=== PATIENT | female | born 1965 | race Caucasian/White ===

== ENCOUNTER 2016-09-27 14:57 | Emergency (ER) | payer OTHER ==
[~2016-09-27] VITALS: Ht 162.6 cm; Wt 69.9 kg
[~2016-09-27 14:57] MED LIST: ACID1TAB14 PO; ADAL40PE2 SQ; ADALIMUMAB SQ; DEXL60CA2 PO; DOXY100C14 PO; DULO30CA2 PO; DULO60CA6 PO; FENT1PAT17 TP; Fentanyl TD; HYDR-2766 PO; LEVO500T59 PO; MESA250C PO; MESA500C PO; NEOM1OIN6 TP; ONDA4TAB12 PO
[2016-09-27 15:10] VITALS: BP 122/91
--- NOTE | 2016-09-27 15:31 | PHYS DOC ---
Past Medical History Past Medical History: Arthritis, Fibromyalgia, Other Additional Past Medical Histor: Crohn's disease, SKIN DISORDERS, genital warts Past Surgical History: Appendectomy, , Tonsillectomy, Tubal ligation Additional Past Surgical Histo: ILEOSTOMY REPAIR, COLON RESECTION Alcohol Use: Occasionally Drug Use: None Adult General Chief Complaint Chief Complaint: KNEE SWELLING HPI HPI Patient is a 51 year old female with a history of fibromyalgia, arthritis, who presents with moderate right knee pain and swelling that began 3 days ago. Patient denies any injuries. She states she would like her knee drained. She states she is currently on fentanyl and takes 10/325 mg of hydrocodone every 6 hours. Patient states she's had to double her pain medicine in the last couple days. Patient denies any injury. Review of Systems Review of Systems Constitutional: Denies fever or chills [] Eyes: Denies change in visual acuity, redness, or eye pain [] HENT: Denies nasal congestion or sore throat [] Musculoskeletal: moderate right knee pain and swelling Integument: Denies rash or skin lesions [] Neurologic: Denies headache, focal weakness or sensory changes [] Endocrine: Denies polyuria or polydipsia [] Allergies Allergies Allergies Coded Allergies Type Severity Reaction Last Updated Verified Sulfa (Sulfonamide Antibiotics) Allergy Intermediate 10/14/14 Yes aspirin Allergy Intermediate 10/14/14 Yes erythromycin base Allergy Intermediate 10/14/14 Yes ibuprofen Allergy Intermediate 10/14/14 Yes vancomycin Allergy Intermediate 10/14/14 Yes I S O L A T I O N *CONTACT* Allergy Unknown 11/17/15 Yes Physical Exam Physical Exam Constitutional: Well developed, well nourished, no acute distress, non-toxic appearance. [] HENT: Normocephalic, atraumatic, bilateral external ears normal, oropharynx moist, no oral exudates, nose normal. [] Skin: Warm, dry, no erythema, no rash. [] Back: No tenderness, no CVA tenderness. [] Extremities: Right knee with mild soft tissue swelling diffusely. Tenderness diffusely on palpation of the right knee. Full range of motion to the right knee including negative Gill sign and negative Evelyn's sign negative anterior-posterior drawer sign to the right knee. +2 right pedal pulse. Cap refill less than 2 seconds the right lower extremity. Sensation intact to the right lower extremity. Neurologic: Alert and oriented X 3, normal motor function, normal sensory function, no focal deficits noted. [] Psychologic: Affect normal, judgement normal, mood normal. [] Current Patient Data Vital Signs Vital Signs Date Time Temp Pulse Resp B/P (MAP) Pulse Ox O2 Delivery O2 Flow Rate FiO2 09/27/16 15:10 98.0 85 18 96 Room Air 98.0 EKG EKG [] Radiology/Procedures Radiology/Procedures [] Course & Med Decision Making Course & Med Decision Making Pertinent Labs and Imaging studies reviewed. (See chart for details) Patient is in the ED with complaints of right knee pain and swelling. She is requesting we drain the right knee. Right knee has no signs of infection. Informed patient we typically don't drain any joints in the ED unless there is good indication for it we recommend orthopedic doctor f/u, she states she has an orthopedic doctor but she does not remember the name. Recommended x-rays of the knee. Patient states the x-rays are not beneficial for her. She states all she wanted is the knee to be drained, she was also requesting pain medicine. She states she has a fentanyl patch on and takes 10/325 mg of hydrocodone. She states she has had to double up her pain medicines right now she is on her last tablets. Informed patient we will not give her any prescription strength narcotics from the emergency room. Recommended x-ray again. She declined. She states she has a knee brace and wanted to be discharged. She states she'll follow-up with her own primary care doctor next week. Patient was discharged in stable condition. Dragon Disclaimer Dragon Disclaimer This electronic medical record was generated, in whole or in part, using a voice recognition dictation system. Departure Departure Impression: Primary Impression: Right knee pain Disposition: 01 HOME, SELF-CARE Condition: STABLE Referrals: WESTLEY GRUBBS MD (PCP) TARA YBARRA MD follow up with your orthopedic doctor as soon as you can or your primary care doctor Patient Instructions: Knee Pain, [id number] Additional Instructions: You were seen for right knee pain and swelling. We recommended x-rays of the right knee which you declined. Please follow-up with your own primary care doctor as well as orthopedic doctor as soon as possible. Wear the knee brace as tolerated. Ice and elevate the extremity. 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
== END 2016-09-27 15:33 | disposition home or self-care (01) ==
LOC: ER 14:57
DX: M25.561 Pain in right knee (principal); M79.89 Other specified soft tissue disorders; M79.7 Fibromyalgia; K50.90 Crohn's disease, unspecified, without complications; M19.90 Unspecified osteoarthritis, unspecified site; Z90.49 Acquired absence of other specified parts of digestive tract; Z98.51 Tubal ligation status; Z88.2 Allergy status to sulfonamides; Z88.6 Allergy status to analgesic agent; Z88.1 Allergy status to other antibiotic agents; Z91.041 Radiographic dye allergy status
CPT/HCPCS: 99281; 99284

== ENCOUNTER 2017-01-13 18:02 | Emergency (ER) | payer OTHER ==
[~2017-01-13] VITALS: Ht 162.6 cm; Wt 69.9 kg
[2017-01-13 19:02] VITALS: BP 153/92
[2017-01-13] MEDS ORDERED: LIDOCAINE 2% 20 ML VIAL. IJ ONE (19:15)
--- NOTE | 2017-01-13 19:51 | PHYS DOC ---
Past Medical History Past Medical History: Arthritis, Fibromyalgia, Other Additional Past Medical Histor: Crohn's disease, SKIN DISORDERS, genital warts , RA Past Surgical History: Appendectomy, , Tonsillectomy, Tubal ligation Additional Past Surgical Histo: ILEOSTOMY REPAIR, COLON RESECTION Additional Information: pt "vapes" Alcohol Use: Occasionally Drug Use: None Adult General Chief Complaint Chief Complaint: INSECT BITE HPI HPI Patient is a 51 year old female with a history of Crohn's disease presents the ED complaining of abscess to right elbow and right abdomen 1 week. Patient states she started pushing on them 2 days ago and got a moderate amount of pus out. Describes the pain as sharp. Rates the pain as 9 out of 10. Denies fever, nausea/vomiting, abdominal pain, dizziness, weakness, shortness of breath or chest pain. Review of Systems Review of Systems Constitutional: Denies fever or chills [] Eyes: Denies change in visual acuity, redness, or eye pain [] HENT: Denies nasal congestion or sore throat [] Respiratory: Denies cough or shortness of breath [] Cardiovascular: No additional information not addressed in HPI [] GI: Denies abdominal pain, nausea, vomiting, bloody stools or diarrhea [] : Denies dysuria or hematuria [] Musculoskeletal: Denies back pain or joint pain [] Integument: Complains of abscess. Denies rash or skin lesions [] Neurologic: Denies headache, focal weakness or sensory changes [] Endocrine: Denies polyuria or polydipsia [] Current Medications Current Medications Current Medications Medications (Trade) Dose Ordered Sig/Juan Start Time Stop Time Status Last Admin Dose Admin Lidocaine HCl 20 ml 1X ONCE 01/13/17 19:15 01/13/17 19:16 DC 01/13/17 19:40 20 ML Allergies Allergies Allergies Coded Allergies Type Severity Reaction Last Updated Verified Sulfa (Sulfonamide Antibiotics) Allergy Intermediate 10/14/14 Yes aspirin Allergy Intermediate 10/14/14 Yes erythromycin base Allergy Intermediate 10/14/14 Yes ibuprofen Allergy Intermediate 10/14/14 Yes vancomycin Allergy Intermediate 10/14/14 Yes I S O L A T I O N *CONTACT* Allergy Unknown 11/17/15 Yes Physical Exam Physical Exam Constitutional: Well developed, well nourished, no acute distress, non-toxic appearance. [] HENT: Normocephalic, atraumatic, bilateral external ears normal, oropharynx moist, no oral exudates, nose normal. [] Eyes: PERRLA, EOMI, conjunctiva normal, no discharge. [] Neck: Normal range of motion, no tenderness, supple, no stridor. [] Cardiovascular:Heart rate regular rhythm, no murmur [] Lungs & Thorax: Bilateral breath sounds clear to auscultation [] Abdomen: Bowel sounds normal, soft, no tenderness, no masses, no pulsatile masses. [] Skin: Warm, dry, no rash. 2X2 CM ABSCESS TO RIGHT ELBOW, 3X1 CM ABSCESS TO RIGHT ABDOMEN. [] Back: No tenderness, no CVA tenderness. [] Extremities: No tenderness, no cyanosis, no clubbing, ROM intact, no edema. [] Neurologic: Alert and oriented X 3, normal motor function, normal sensory function, no focal deficits noted. [] Psychologic: Affect normal, judgement normal, mood normal. [] Current Patient Data Vital Signs Vital Signs Date Time Temp Pulse Resp B/P (MAP) Pulse Ox O2 Delivery O2 Flow Rate FiO2 01/13/17 19:02 97.5 100 20 98 Room Air 97.5 EKG EKG [] Radiology/Procedures Radiology/Procedures [] Course & Med Decision Making Course & Med Decision Making Pertinent Labs and Imaging studies reviewed. (See chart for details) []States tetanus is up-to-date. Incision and drainage completed. No complications. Discussed symptomatic treatment. Prescribe doxycycline and Keflex outpatient. Discussed follow-up for wound reevaluation in 3 days. Provided contact information/education. Discussed reasons to return to the ED sooner. Patient understands and agrees with plan. Family at bedside. Dragon Disclaimer Dragon Disclaimer This electronic medical record was generated, in whole or in part, using a voice recognition dictation system. Departure Departure Impression: Primary Impression: Abscess Disposition: 01 HOME, SELF-CARE Condition: STABLE Referrals: Fide GRUBBS MD (PCP) Patient Instructions: Abscess Scripts Cephalexin (KEFLEX) 500 Mg Capsule 1 CAP PO TID, #30 CAP Prov: KELSI GOEL 01/13/17 Doxycycline Hyclate (DOXYCYCLINE HYCLATE) 100 Mg Capsule 1 CAP PO BID, #20 CAP Prov: KELSI GOEL 01/13/17 Incision and Drainage Incision and Drainage : Site: RIGHT ELBOW Blade Size: 11 I & D Procedure: betadine prep Progress incision and drainage completed. No complications. Incision and Drainage Incision and Drainage : Site: right abdomen Blade Size: 11 I & D Procedure: betadine prep Progress Incision and drainage completed. No complications. KELSI GOEL Jan 13, 2017 19:51
[2017-01-13] MEDS ORDERED: CEPH-264 PO (19:56)
[2017-01-13] MEDS ORDERED: DOXY100C2 PO (19:56)
[2017-01-15] MEDS ORDERED: ESOM40CA47 PO (14:54)
[2017-01-15] MEDS ORDERED: DICL100G18 TOP (14:54)
[2017-01-18] MEDS ORDERED: POTA20TA4 PO (14:01)
[2017-01-18] MEDS ORDERED: CLIN300C8 PO (14:01)
[2017-01-18] MEDS ORDERED: FENT1PAT17 TP (14:01)
== END 2017-01-13 20:06 | disposition home or self-care (01) ==
LOC: ER 18:02
DX: L02.211 Cutaneous abscess of abdominal wall (principal); L02.413 Cutaneous abscess of right upper limb; M79.7 Fibromyalgia; K50.90 Crohn's disease, unspecified, without complications; Z90.49 Acquired absence of other specified parts of digestive tract; Z98.51 Tubal ligation status; Z98.890 Other specified postprocedural states; Z93.2 Ileostomy status; Z88.2 Allergy status to sulfonamides; Z88.1 Allergy status to other antibiotic agents; Z88.6 Allergy status to analgesic agent; Z91.041 Radiographic dye allergy status; M06.9 Rheumatoid arthritis, unspecified
CPT/HCPCS: 10061; 99284-25; J2001

== ENCOUNTER → 2017-11-07 | Outpatient (CLI) | payer OTHER ==
[~2017-11-07] MED LIST changes: -ACID1TAB14 PO; -ADAL40PE2 SQ; -ADALIMUMAB SQ; +CONTRAST GIVEN. MC; -DEXL60CA2 PO; -DOXY100C14 PO; -DULO30CA2 PO; -DULO60CA6 PO; -FENT1PAT17 TP; -Fentanyl TD; -HYDR-2766 PO; -LEVO500T59 PO; -MESA250C PO; -MESA500C PO; -NEOM1OIN6 TP; -ONDA4TAB12 PO
[2017-11-07] MEDS: IOHEXOL 240 MG/ML 50ML VIAL. PO (09:15)
[2017-11-07] MEDS: IOHEXOL 300 MG/ML 100ML VIAL. IV (09:15)
== END | disposition home or self-care (01) ==
LOC: CT 08:33
DX: K50.00 Crohn's disease of small intestine without complications (principal); N32.89 Other specified disorders of bladder; F32.9 Major depressive disorder, single episode, unspecified; K21.9 Gastro-esophageal reflux disease without esophagitis; J44.9 Chronic obstructive pulmonary disease, unspecified; E87.6 Hypokalemia; Z87.891 Personal history of nicotine dependence; Z91.81 History of falling; Z90.49 Acquired absence of other specified parts of digestive tract; Z91.041 Radiographic dye allergy status; Z82.3 Family history of stroke
CPT/HCPCS: 74177; Q9966; Q9967

== ENCOUNTER → 2017-11-18 | Day surgery (SDC) | payer OTHER, MEDICAID ==
[~2017-11-18] MED LIST changes: +ACID1TAB14 PO; +ADAL40PE2 SQ; +ADALIMUMAB SQ; +BETA15OI TP; +CEPH-264 PO; +CLIN300C8 PO; -CONTRAST GIVEN. MC; +DEXL60CA2 PO; +DICL100G18 TOP; +DOXY100C14 PO; +DOXY100C2 PO; +DULO30CA2 PO; +DULO60CA6 PO; +ESOM40CA47 PO; +FENT1PAT17 TP; +Fentanyl TD; +HYDR-2766 PO; +HYDROmorphone 2 MG/ML VIAL IV PRN; +IV RINGERS,LACTATED 1000ML 1,000 ML IV SCH; +LEVO500T59 PO; +LIDOCAINE 1% PF 2 ML VIAL. ID PRN; +LIDOCAINE 2% PF Vial for OR 5 ML VIAL. ONE; +LISI-334 PO; +MESA250C PO; +MESA500C PO; +MORPHINE SULFATE 2 MG/ML VIAL. IV PRN; +NEOM1OIN6 TP; +ONDA4TAB12 PO; +ONDANSETRON PF 4 MG/2 ML VIAL. IV PRN; +POTA20TA4 PO; +PROCHLORPERAZINE 10 MG/2 ML VIAL. IV PRN; +PROPOFOL 40 ML IV ONE; +fentaNYL PF VIAL 100 MCG/2 ML VIAL IV PRN
[2017-11-18 09:45] VITALS: BP 116/63
== END ==
LOC: SURG 08:31
PROVIDERS: ATTEND Internal Medicine Gastroenterology
DX: K56.699 Other intestinal obstruction unspecified as to partial versus complete obstruction (principal); K50.00 Crohn's disease of small intestine without complications; I10 Essential (primary) hypertension; F32.9 Major depressive disorder, single episode, unspecified; F41.9 Anxiety disorder, unspecified; K21.9 Gastro-esophageal reflux disease without esophagitis; E87.6 Hypokalemia; J44.9 Chronic obstructive pulmonary disease, unspecified; Z90.49 Acquired absence of other specified parts of digestive tract; Z98.51 Tubal ligation status; Z87.39 Personal history of other diseases of the musculoskeletal system and connective tissue; Z98.890 Other specified postprocedural states; Z87.891 Personal history of nicotine dependence; Z86.14 Personal history of Methicillin resistant Staphylococcus aureus infection
CPT/HCPCS: 45378; J2001; J2704

== ENCOUNTER → 2017-12-04 | Outpatient (CLI) | payer OTHER, MEDICAID ==
[2017-11-18 09:45] VITALS: BP 116/63
[~2017-12-04] MED LIST changes: +BARIUM SULFATE 340 GM SUSPENSION. PO ONE; +BARIUM SULFATE 60% 355 ML SUSP PO ONE; -HYDROmorphone 2 MG/ML VIAL IV PRN; -IV RINGERS,LACTATED 1000ML 1,000 ML IV SCH; -LIDOCAINE 1% PF 2 ML VIAL. ID PRN; -LIDOCAINE 2% PF Vial for OR 5 ML VIAL. ONE; -MORPHINE SULFATE 2 MG/ML VIAL. IV PRN; -ONDANSETRON PF 4 MG/2 ML VIAL. IV PRN; -PROCHLORPERAZINE 10 MG/2 ML VIAL. IV PRN; -PROPOFOL 40 ML IV ONE; +SIMETHICONE/SOD BICARB/CITRIC ACID PACKET. PO ONE; -fentaNYL PF VIAL 100 MCG/2 ML VIAL IV PRN
--- NOTE | 2017-12-04 11:00 | RAD ---
Double contrast upper GI with small bowel follow-through, 12/04/2017: History: Abdominal pain and bloating, Crohn's disease The study was performed utilizing high density barium and gas-forming crystals followed by regular liquid barium. 3.3 minutes of fluoroscopy time was utilized. 21 fluoroscopic spot images were recorded. The swallowing mechanism is intact. The esophageal peristalsis is normal. No hiatal hernia or gastroesophageal reflux was demonstrated. The stomach and duodenal bulb show no evidence of ulceration or mass. There is a 3.5 cm diverticulum arising from the third portion of the duodenum. The small bowel loops are of normal caliber with no evidence of thickening of their folds. There has been previous surgery involving the distal ileum. It connects to the ascending colon well above the level of the cecum. This presumably represents a surgical anastomosis. No inflammatory changes or significant stricture involving the terminal ileum is identified. IMPRESSION: 1. No significant upper GI abnormality is detected. 2. Moderate sized duodenal diverticulum. 3. Unusual high anastomosis of the terminal ileum with the ascending colon. 4. No evidence of small bowel obstruction.
== END | disposition home or self-care (01) ==
LOC: RAD 14:23
PROVIDERS: ATTEND Internal Medicine Gastroenterology
DX: K57.10 Diverticulosis of small intestine without perforation or abscess without bleeding (principal); J44.9 Chronic obstructive pulmonary disease, unspecified; K21.9 Gastro-esophageal reflux disease without esophagitis; Z87.891 Personal history of nicotine dependence; Z86.14 Personal history of Methicillin resistant Staphylococcus aureus infection; Z87.39 Personal history of other diseases of the musculoskeletal system and connective tissue; Z90.49 Acquired absence of other specified parts of digestive tract; Z88.2 Allergy status to sulfonamides; Z88.1 Allergy status to other antibiotic agents; Z88.8 Allergy status to other drugs, medicaments and biological substances; Z88.6 Allergy status to analgesic agent; Z82.49 Family history of ischemic heart disease and other diseases of the circulatory system; Z82.3 Family history of stroke
CPT/HCPCS: 74249

== ENCOUNTER → 2018-11-04 | Outpatient (CLI) | payer OTHER, MEDICAID ==
[2017-11-18 09:45] VITALS: BP 116/63
[~2018-11-04] MED LIST changes: -BARIUM SULFATE 340 GM SUSPENSION. PO ONE; -BARIUM SULFATE 60% 355 ML SUSP PO ONE; -HYDR-2766 PO; +HYDR-2769 PO; -SIMETHICONE/SOD BICARB/CITRIC ACID PACKET. PO ONE
--- NOTE | 2018-11-05 10:24 | RAD ---
DATE: 11/05/2018 EXAM: MAMMO LENO SCREENING BILATERAL HISTORY: Routine screening COMPARISON: None. Attempts to obtain prior exams for comparison were unsuccessful. This study was interpreted with the benefit of Computerized Aided Detection (CAD). Breast Density: SCATTERED The breast parenchyma shows scattered fibroglandular densities. Breast parenchyma level B. FINDINGS: No dominant masses, distortion, or suspicious calcifications. IMPRESSION: No suspicious finding. BI-RADS CATEGORY: 1 NEGATIVE RECOMMENDED FOLLOW-UP: 12M 12 MONTH FOLLOW-UP PQRS compliance statement: Patient information was entered into a reminder system with a target due date in one year for the next mammogram. Mammography is a sensitive method for finding small breast cancers, but it does not detect them all and is not a substitute for careful clinical examination. A negative mammogram does not negate a clinically suspicious finding and should not result in delay in biopsying a clinically suspicious abnormality. "Our facility is accredited by the [employer] Mammography Program."
== END | disposition home or self-care (01) ==
LOC: MAMMO 14:47
PROVIDERS: ATTEND Family Medicine
DX: Z12.31 Encounter for screening mammogram for malignant neoplasm of breast (principal)
CPT/HCPCS: 77063; 77067

== ENCOUNTER → 2018-12-28 | Outpatient (CLI) | payer OTHER, MEDICAID ==
[2017-11-18 09:45] VITALS: BP 116/63
--- NOTE | 2018-12-28 15:44 | KCIC ---
EXAM: Chest, 2 views. HISTORY: Bronchitis. COMPARISON: None. FINDINGS: 2 views of the chest are obtained. There is no infiltrate, pleural effusion or pneumothorax. The heart is normal in size. There is linear atelectasis or scarring within the left lower lobe. IMPRESSION: No acute pulmonary finding. Electronically signed by: Thais oSusa MD (12/28/2018 3:42 PM) [place] [id number]
== END | disposition home or self-care (01) ==
LOC: KCIC 14:40
PROVIDERS: ATTEND Family Medicine
DX: J20.9 Acute bronchitis, unspecified (principal); J98.11 Atelectasis
CPT/HCPCS: 71046

== ENCOUNTER → 2019-11-18 | Outpatient (CLI) | payer MEDICARE, MEDICAID ==
[2017-11-18 09:45] VITALS: BP 116/63
[~2019-11-18] MED LIST changes: +CONTRAST GIVEN. MC PRN; -DICL100G18 TOP; +DICL100G54 TOP; +IOHEXOL 240 MG/ML 50ML VIAL. PO ONE; +IOHEXOL 300 MG/ML 100ML VIAL. IV ONE
[2019-11-18 13:18] LABS: BASO % 0 % (0-3); EOS # 0.1 x10^3/uL (0.0-0.7); EOS % 2 % (0-3); HEMATOCRIT 41.4 % (36.0-47.0); LYMPH # 0.9 x10^3/uL (1.0-4.8); LYMPH % 18 % (24-48); MEAN CORPUSCULAR HEMOGLOBIN 30 pg (25-35); MEAN CORPUSCULAR HGB CONC 34 g/dL (31-37); MEAN CORPUSCULAR VOLUME 89 fL (79-100); MONO # 0.4 x10^3/uL (0.0-1.1); MONO % 9 % (0-9); NEUT # 3.4 x10^3/uL (1.8-7.7); NEUT % 71 % (31-73); PLATELET COUNT 235 x10^3/uL (140-400); RED BLOOD COUNT 4.63 x10^6/uL (3.50-5.40); RED CELL DISTRIBUTION WIDTH 13.7 % (11.5-14.5); WHITE BLOOD COUNT 4.8 x10^3/uL (4.0-11.0)
[2019-11-18 13:38] LABS: ALBUMIN 3.8 g/dL (3.4-5.0); ALBUMIN/GLOBULIN RATIO 0.7 (1.0-1.7); CALCIUM 9.9 mg/dL (8.5-10.1); CREATININE 0.8 mg/dL (0.6-1.0); POTASSIUM 4.7 mmol/L (3.5-5.1); TOTAL BILIRUBIN 0.5 mg/dL (0.2-1.0); TOTAL PROTEIN 9.2 g/dL (6.4-8.2)
--- NOTE | 2019-11-18 17:01 | RAD ---
EXAM: Abdomen and pelvis CT with intravenous contrast. HISTORY: Right upper quadrant pain. TECHNIQUE: Computed tomographic images of the abdomen and pelvis were obtained following the administration of intravenous contrast. Multiplanar reformatting was performed. *One or more of the following individualized dose reduction techniques were utilized for this examination: 1. Automated exposure control. 2. Adjustment of the mA and/or kV according to patient size. 3. Use of iterative reconstruction technique. COMPARISON: 01/05/2018. FINDINGS: Evaluation of the lower thorax demonstrates no infiltrate, pleural effusion or pneumothorax. There is a 3 mm nodule within the right middle lobe. There is no suspicious hepatic lesion. The gallbladder, pancreas, spleen, adrenal glands and kidneys are unremarkable. The appendix is surgically absent. There is no evidence of bowel obstruction. The bladder is empty. The uterus and adnexal regions are unremarkable. There is diastasis of the ventral abdominal wall with protrusion of fat and loops of bowel. No significant superimposed hernia is seen. There is no lymphadenopathy. There is no suspicious osseous lesion. IMPRESSION: 1. No acute abdominal or pelvic finding. 2. Diastasis of the ventral abdominal wall. 3. Stable 3 mm right middle lobe pulmonary nodule. The two-year course of stability favors benignity. Electronically signed by: Thais Sousa MD (11/18/2019 4:58 PM) [facility]
== END | disposition home or self-care (01) ==
LOC: CT 12:17
PROVIDERS: ATTEND Internal Medicine Gastroenterology
DX: K50.90 Crohn's disease, unspecified, without complications (principal); R91.1 Solitary pulmonary nodule; M62.08 Separation of muscle (nontraumatic), other site; Z90.49 Acquired absence of other specified parts of digestive tract
CPT/HCPCS: 36415; 74177; 80053; 82150; 82306; 82607; 83690; 85025; Q9966; Q9967

== ENCOUNTER 2020-12-10 05:39 | Emergency (ER) | payer MEDICARE, MEDICAID ==
[~2020-12-10] VITALS: Ht 162.6 cm; Wt 85.8 kg
[~2020-12-10 05:39] MED LIST changes: -CLIN300C8 PO; +CLIN300C9 PO; -CONTRAST GIVEN. MC PRN; +DOXY-181 PO; -DOXY100C14 PO; -DOXY100C2 PO; +DOXY100C3 PO; -IOHEXOL 240 MG/ML 50ML VIAL. PO ONE; -IOHEXOL 300 MG/ML 100ML VIAL. IV ONE; -LISI-334 PO; +LISI20TA18 PO; +POTA-121 PO; -POTA20TA4 PO
[2020-12-10] MEDS ORDERED: MORPHINE SULFATE 4 MG/ML INJ. IVP ONE (07:00)
[2020-12-10] MEDS ORDERED: ONDANSETRON PF 4 MG/2 ML VIAL. IVP ONE (07:00)
[2020-12-10] MEDS ORDERED: IV NORMAL SALINE 1000ML BAG 1,000 ML IV ONE (07:00)
--- NOTE | 2020-12-10 07:11 | PHYS DOC ---
Past Medical History Past Medical History: Arthritis, Fibromyalgia, Other Additional Past Medical Histor: Crohn's disease, SKIN DISORDERS, genital warts, RA,HYPOKALEMIA Past Surgical History: Appendectomy, , Tonsillectomy, Tubal ligation Additional Past Surgical Histo: ILEOSTOMY REPAIR, COLON RESECTION Smoking Status: Current Every Day Smoker Alcohol Use: Rarely Drug Use: None General Adult EDM: Chief Complaint: ABDOMINAL PAIN HPI: HPI: Patient is a 55 year old female with history of rheumatoid arthritis, Crohn's disease who presents with "Crohn's flare." States that she has had 2-3 days of intensifying abdominal pain. Most intense in the right lower quadrant, but does hurt diffusely. It is been constant. Also associated with nausea and vomiting, poor appetite. She endorses oily diarrhea. Denies blood in emesis or stool. Denies fever/chills. Denies dysuria, urgency, frequency. Takes Humira. Denies being on others steroids or or immunosuppressants. States it has been years since her last Crohn's flare. States she has had 4 previous surgeries related to Crohn's disease. She does have hernia, that has not been repaired. She is very reluctant to take steroids unless absolutely necessary. She has a GI doctor in [facility], but is unclear on the doctors name. Review of Systems: Review of Systems: Constitutional: Denies fever or chills. [] Eyes: Denies change in visual acuity. [] HENT: Denies nasal congestion or sore throat. [] Respiratory: Denies cough or shortness of breath. [] Cardiovascular: Denies chest pain or edema. [] GI: Reports abdominal pain, nausea, vomiting, diarrhea. No blood in stools or emesis.. [] : Denies dysuria. [] Musculoskeletal: Denies back pain or joint pain. [] Integument: Denies rash. [] Neurologic: Denies headache, focal weakness or sensory changes. [] Endocrine: Denies polyuria or polydipsia. [] Lymphatic: Denies swollen glands. [] Psychiatric: Denies depression or anxiety. [] Heart Score: C/O Chest Pain: N/A Risk Factors: Risk Factors: DM, Current or recent (<one month) smoker, HTN, HLP, family history of CAD, obesity. Risk Scores: Score 0 - 3: 2.5% MACE over next 6 weeks - Discharge Home Score 4 - 6: 20.3% MACE over next 6 weeks - Admit for Clinical Observation Score 7 - 10: 72.7% MACE over next 6 weeks - Early Invasive Strategies Current Medications: Current Medications Medications (Trade) Dose Ordered Sig/Juan Start Time Stop Time Status Last Admin Dose Admin Morphine Sulfate (Morphine Sulfate) 4 mg 1X ONCE 12/10/20 07:00 12/10/20 07:01 DC Ondansetron HCl (Zofran) 4 mg 1X ONCE 12/10/20 07:00 12/10/20 07:01 DC Sodium Chloride 1,000 ml @ 1,000 mls/hr 1X ONCE 12/10/20 07:00 12/10/20 07:59 Allergies: Allergies: Allergies Coded Allergies Type Severity Reaction Last Updated Verified Sulfa (Sulfonamide Antibiotics) Allergy Intermediate 11/18/17 Yes aspirin Allergy Intermediate 11/18/17 Yes erythromycin base Allergy Intermediate 11/18/17 Yes ibuprofen Allergy Intermediate 11/18/17 Yes latex Allergy Intermediate Hives 11/18/17 Yes vancomycin Allergy Intermediate 11/18/17 Yes I S O L A T I O N *CONTACT* Allergy Unknown 11/18/17 Yes Physical Exam: PE: Constitutional: Appears uncomfortable, clutching abdomen, wincing in pain. [] HENT: Normocephalic, atraumatic, [] Eyes: conjunctiva normal, no discharge. [] Neck: Normal range of motion, no tenderness, supple, no stridor. [] Cardiovascular:Heart rate regular rhythm, no murmur [] Lungs & Thorax: Bilateral breath sounds clear to auscultation [] Abdomen: Diffuse tenderness to palpation, most intense in the right lower quadrant. [] Skin: Warm, dry, no erythema, no rash. [] Extremities: No tenderness, no cyanosis, no clubbing, ROM intact, no edema. [] Neurologic: Alert and oriented X 3, normal motor function, normal sensory function, no focal deficits noted. [] Psychologic: Affect normal, judgement normal, mood normal. [] Current Patient Data: Vital Signs: Vital Signs Date Time Temp Pulse Resp B/P (MAP) Pulse Ox O2 Delivery O2 Flow Rate FiO2 12/10/20 06:38 86 20 150/75 (100) 99 Room Air 12/10/20 06:14 98.4 98.4 EKG: EKG: [] Radiology/Procedures: Radiology/Procedures: [] Impression: [facility] [address] [place], [place] [id number] IMAGING REPORT Signed PATIENT: NIMESH CHOI ACCOUNT: [id number] : 1965 LOCATION: ER AGE: 55 SEX: F EXAM STATUS: REG ER ORD. PHYSICIAN: KARLO BENITES MD REASON: crohn's disease, flare, RLQ pain PROCEDURE: CT ABD PELV W/ORAL&IV CONTRAST CT ABDOMEN+PELVIS W dated 12/10/2020 8:36 AM Indication:Reason: crohn's disease, flare, RLQ pain / Spl. Instructions: IV omni 300 75 mls and PO omni 240 50 mls / History: Comparison: CT 11/18/2019. Technique: Helical CT images were performed through the abdomen and pelvis following oral contrast ingestion and using an infusion of 75 L Omnipaque 300. One or more of the following individualized dose reduction techniques were utilized for this examination: 1. Automated exposure control 2. Adjustment of the mA and/or kV according to patient size 3. Use of iterative reconstruction technique Findings: There is mild dependent atelectasis on the right. The lung bases otherwise are clear. No focal liver lesion is seen. There is evidence of diffuse fatty infiltration. The spleen appears normal. Both kidneys enhance with contrast. There is no apparent mass or obstruction. The adrenal glands are not enlarged. The pancreas appears normal. No retroperitoneal or mesenteric adenopathy is seen. There is no apparent abdominal soft tissue mass. Postoperative changes are seen from prior bowel resection with ileocolonic anastomosis in the right abdomen. There is no evidence of bowel obstruction. No obvious bowel inflammation or wall thickening is seen. Images through the pelvis show no abnormality of the distal ureters or bladder. No pelvic or inguinal adenopathy is seen. The uterus and adnexal structures appear normal for age. No separate pelvic mass or inflammatory process is seen. IMPRESSION: No apparent acute abnormality. Electronically signed by: Alexander Alicea Jr., MD (12/10/2020 9:11 AM) [id number] DICTATED and SIGNED BY: ALEXANDER ALICEA Jr, MD DATE: 12/10/20 [id number] 0 Course & Med Decision Making: Course & Med Decision Making Pertinent Labs and Imaging studies reviewed. (See chart for details) Patient a 55-year-old female with history of RA and Crohn's disease who presents with concerns for Crohn's flare. On arrival is afebrile and hemodynamically stable. Appears acutely uncomfortable on examination, and has diffuse abdominal tenderness and guarding. Tenderness worse in the right lower quadrant. We will provide antiemetics, analgesics, IVF. We will evaluate with labs and CT imaging. PO and IV contrast ordered to better evaluate for crohn's complications such as abscess, fistula, and intestinal wall thickening. [address] unremarkable. She is feeling more comfortable after morphine. Discussed admission for treatment of her flare up and she is very resistant to hospitalization due to the current pandemic. Will discuss with on-call GI for any recommendations for specific therapy aside from pain control and close outpatient GI follow up. 09 I discussed the case with Dr. Reed, of GI, who recommends prednisone course 20 mg twice daily for 2 weeks with close outpatient follow-up. I will also prescribe a short course of oxycodone for pain control. Return precautions discussed. 1002 Dragon Disclaimer: [employer] Disclaimer: This electronic medical record was generated, in whole or in part, using a voice recognition dictation system. Departure Departure Impression: Primary Impression: Exacerbation of Crohn's disease Additional Impression: Abdominal pain Disposition: HOME / SELF CARE / HOMELESS Condition: STABLE Referrals: Fide GRUBBS MD (PCP) Additional Instructions: I believe you are having a Crohn's flareup. I discussed with the tools and parts attendant, who would like to start you on a prednisone burst. Please take 1/2 tab twice a day for 2 weeks. For pain you can use oxycodone 5 mg every 4-6 hours as needed. For nausea you can use Zofran 4 mg every 6 hours as needed. Please also try Tylenol 1000 mg every 6 hours. Please follow-up with your tools and parts attendant as soon as possible. Please call tomorrow to make an appointment with both your GI doctor and your PCP. If you develop high fevers, shaking chills, severe vomiting, worsening pain, or other new/concerning symptoms please return to the emergency department for reevaluation. Scripts Prednisone (PREDNISONE) 50 Mg Tablet 0.5 TAB PO BID for 14 Days, #14 TAB Prov: KARLO BENITES MD 12/10/20 Ondansetron Hcl (ZOFRAN) 4 Mg Tablet 1 TAB PO PRN Q6-8HRS for nausea, #20 TAB Prov: KARLO BENITES MD 12/10/20 Oxycodone Hcl (OXYCODONE HCL) 5 Mg Capsule 5 MG PO PRN Q4-6HRS PRN for PAIN for 5 Days, #20 TAB 0 Refills Prov: KARLO BENITES MD 12/10/20 KARLO BENITES MD Dec 10, 2020 07:11
[2020-12-10 07:37] LABS: BACTERIA,URINE 0 /HPF (0-FEW); BILIRUBIN,URINE NEGATIVE (NEG); CLARITY,URINE CLEAR; COLOR,URINE YELLOW; NITRITE,URINE NEGATIVE (NEG); PROTEIN,URINE 30 mg/dL (NEG-TRACE); RBC,URINE 0 /HPF (0-2); UROBILINOGEN,URINE 0.2 mg/dL (0.2 mg/dL); WBC,URINE RARE /HPF (0-4)
[2020-12-10 07:55] LABS: BASO # 0.1 x10^3/uL (0.0-0.2); BASO % 1 % (0-3); EOS # 0.2 x10^3/uL (0.0-0.7); EOS % 4 % (0-3); HEMOGLOBIN 12.8 g/dL (12.0-15.5); LYMPH # 1.4 x10^3/uL (1.0-4.8); LYMPH % 26 % (24-48); MEAN CORPUSCULAR HEMOGLOBIN 32 pg (25-35); MEAN CORPUSCULAR HGB CONC 35 g/dL (31-37); MEAN CORPUSCULAR VOLUME 93 fL (79-100); MONO # 0.7 x10^3/uL (0.0-1.1); MONO % 13 % (0-9); NEUT % 57 % (31-73); PLATELET COUNT 222 x10^3/uL (140-400); RED BLOOD COUNT 3.99 x10^6/uL (3.50-5.40); RED CELL DISTRIBUTION WIDTH 14.6 % (11.5-14.5); WHITE BLOOD COUNT 5.3 x10^3/uL (4.0-11.0)
[2020-12-10 08:18] LABS: CALCIUM 8.7 mg/dL (8.5-10.1); CREATININE 0.8 mg/dL (0.6-1.0); GFR 74.7; POTASSIUM 3.1 mmol/L (3.5-5.1)
[2020-12-10 08:24] LABS: ALBUMIN 3.4 g/dL (3.4-5.0); ALBUMIN/GLOBULIN RATIO 0.7 (1.0-1.7); MAGNESIUM 1.4 mg/dL (1.8-2.4); PHOSPHORUS 4.7 mg/dL (2.6-4.7); TOTAL BILIRUBIN 0.2 mg/dL (0.2-1.0); TOTAL PROTEIN 8.1 g/dL (6.4-8.2)
[2020-12-10] MEDS ORDERED: IOHEXOL 240 MG/ML 50ML VIAL. PO ONE (08:30)
[2020-12-10] MEDS ORDERED: IOHEXOL 300 MG/ML 100ML VIAL. IV ONE (08:30)
[2020-12-10] MEDS ORDERED: CONTRAST GIVEN. MC PRN (08:30)
--- NOTE | 2020-12-10 09:13 | RAD ---
CT ABDOMEN+PELVIS W dated 12/10/2020 8:36 AM Indication:Reason: crohn's disease, flare, RLQ pain / Spl. Instructions: IV omni 300 75 mls and PO om ni 240 50 mls / History: Comparison: CT 11/18/2019. Technique: Helical CT images were performed through the abdomen and pelvis following oral contrast in gestion and using an infusion of 75 L Omnipaque 300. One or more of the following individualized dose reduction techniques were utilized for this examinat ion: 1. Automated exposure control 2. Adjustment of the mA and/or kV according to patient size 3. Use of iterative reconstruction technique Findings: There is mild dependent atelectasis on the right. The lung bases otherwise are clear. No focal liver lesion is seen. There is evidence of diffuse fatty infiltration. The spleen appears normal. Both kidn eys enhance with contrast. There is no apparent mass or obstruction. The adrenal glands are not enlar ged. The pancreas appears normal. No retroperitoneal or mesenteric adenopathy is seen. There is no ap parent abdominal soft tissue mass. Postoperative changes are seen from prior bowel resection with ile ocolonic anastomosis in the right abdomen. There is no evidence of bowel obstruction. No obvious damien l inflammation or wall thickening is seen. Images through the pelvis show no abnormality of the distal ureters or bladder. No pelvic or inguinal adenopathy is seen. The uterus and adnexal structures appear normal for age. No separate pelvic mass or inflammatory process is seen. IMPRESSION: No apparent acute abnormality. Electronically signed by: Marbin Alicea Jr., MD (12/10/2020 9:11 AM) [id number]
[2020-12-10] MEDS ORDERED: ONDA4TAB7 PO (10:06)
[2020-12-10] MEDS ORDERED: OXYC5CAP PO (10:06)
[2020-12-10] MEDS ORDERED: PRED50TA PO (10:08)
[2020-12-10 10:09] VITALS: BP 172/93
== END 2020-12-10 10:12 | disposition home or self-care (01) ==
LOC: ER 05:39
DX: K50.90 Crohn's disease, unspecified, without complications (principal); F17.200 Nicotine dependence, unspecified, uncomplicated; Z88.1 Allergy status to other antibiotic agents; Z88.2 Allergy status to sulfonamides; Z91.040 Latex allergy status; Z91.041 Radiographic dye allergy status; Z88.6 Allergy status to analgesic agent; Z88.8 Allergy status to other drugs, medicaments and biological substances
CPT/HCPCS: 36415; 74177; 80053; 81001; 83735; 84100; 85025; 96361; 96374; 96375; 99285; J2270; J2405; J7030; Q9966; Q9967